=== PATIENT | male | born 1995 | race Caucasian/White ===

== ENCOUNTER 2017-12-23 13:18 | Emergency (ER) | payer BC, OTHER ==
[~2017-12-23] VITALS: Ht 167.6 cm; Wt 63.0 kg
[2017-12-23 13:24] VITALS: BP 135/80; PULSE 67; RESP 16; TEMP 99.4; O2SAT 97
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
[2017-12-23] MEDS ORDERED: KETOROLAC TROMETHAMINE 60 MG/2 ML (IM) VIAL IM ONE (15:15)
[2017-12-23] MEDS ORDERED: ORPHENADRINE INJ 60 MG/2 ML AMP IM ONE (15:15)
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
[2017-12-23] MEDS ORDERED: ROBA750T PO (15:37)
[2017-12-23] MEDS ORDERED: BENZ1CAP51 PO (15:37)
[2017-12-23] MEDS ORDERED: IBUP-232 PO (15:37)
== END 2017-12-23 16:07 | disposition home or self-care (01) ==
LOC: PHEFT 13:18
DX: S09.90XA Unspecified injury of head, initial encounter (principal); S16.1XXA Strain of muscle, fascia and tendon at neck level, initial encounter; S20.219A Contusion of unspecified front wall of thorax, initial encounter; V47.5XXA Car driver injured in collision with fixed or stationary object in traffic accident, initial encounter; F90.9 Attention-deficit hyperactivity disorder, unspecified type; F41.9 Anxiety disorder, unspecified; F32.9 Major depressive disorder, single episode, unspecified
CPT/HCPCS: 70450; 71046; 72125; 96372; 99283; J1885; J2360